=== PATIENT | female | born 1965 | race Caucasian/White ===

== ENCOUNTER 2021-05-26 15:58 | Outpatient (CLI) | payer OTHER | END 2021-05-26 15:59 | disposition home or self-care (01) | LOC: COV 15:58 | PROVIDERS: ATTEND Family Medicine | DX: R05 Cough (principal); R53.83 Other fatigue; R09.81 Nasal congestion; J34.89 Other specified disorders of nose and nasal sinuses; Z20.822 Contact with and (suspected) exposure to COVID-19 ==